=== PATIENT | male | born 1985 | race Caucasian/White ===

== ENCOUNTER 2024-12-21 01:10 | Emergency (ER) | payer OTHER, SELFPAY ==
[2024-12-21 01:29] VITALS: BP 148/96; BMI 25.1
[2024-12-21 02:00] VITALS: BP 145/101
--- NOTE | 2024-12-21 02:18 | ED.GENMED ---
History of Present Illness
General
Chief Complaint: Change in Mental Status
Source: patient and other (Transfer note from present)
Time Seen by Provider: 12/21/24 01:51
History of Present Illness
History of Present Illness:
39-year-old male brought to the emergency room from [facility] where he was noted to have a period of confusion. No witnessed seizure activity though the patient does have a history of seizures. He is prescribed Vimpat and
Briviact. Patient has been incarcerated for the past 24 hours or so. He endorses using cocaine, meth and 'Dab'. Staff were concerned the patient may have had a seizure. He does not believe he had a seizure. Patient denies any chest pain,
shortness of breath, abdominal pain. Patient was initially declined IV access and blood draw by nursing.
Past History
Past History
ED Past Medical History: Seizures
ED Past Surgical History: None
Social History
Tobacco: Smoker
Alcohol: None
Drug: None
Personal: Single
Living: with family
Employment: Employed
Phy Exam
Physical Exam
Physical Exam:
General: Awake, Alert, Oriented X3. Answers questions appropriately though does seem a bit unfocused.
Vitals: Mildly tachycardic
Head: Atraumatic
Eyes: Pupils equal, EOMI
Throat: Airway intact, no exudates
Neck: Trachea midline
Lungs: Clear and equal b/l
Heart: Regular rate, no murmurs
Abd: Soft, Nontender, No pulsatile mass
Neuro: Nonfocal
Skin: Warm, dry, no rash
Extremities: pulses equal b/l, no edema
Course
Orders/Labs/Results
Orders:
Orders
12/21/24 02:12
0.9% Sodium Chloride 1000 ml [Nss] 1,000 ml IV BOLUS
Lorazepam [Ativan] 1 mg IV NOW STA
12/21/24 02:55
Complete Blood Count/With Diff Urgent
Comprehensive Metabolic Panel Urgent
Abnormal Lab Results
12/21/24
02:55
WBC 13.0 H 10^3/uL
(4.8-10.8)
Abs Immat Gran (auto) 0.1 H 10^3/uL
(0-0.05)
Absolute Neuts (auto) 11.3 H 10^3/uL
(1.4-6.5)
Absolute Lymphs (auto) 0.9 L 10^3/uL
(1.2-3.4)
Absolute Monos (auto) 0.8 H 10^3/uL
(0.1-0.6)
Neutrophils % 86.8 H %
(42.2-75.2)
Lymphocytes % 6.5 L %
(20.5-51.1)
Chloride 110 H mmol/L
(98-107)
Glucose 101 H mg/dl
(70-99)
ALT 57 H U/L
(0-50)
12/21/24 02:55
12/21/24 02:55
Vital Signs
Initial and Last Documented VS:
Initial Vital Signs
Temp Pulse Resp BP Pulse Ox
98.9 F 116 18 148/96 95
12/21/24 01:29 12/21/24 01:29 12/21/24 01:29 12/21/24 01:29 12/21/24 01:29
Last Documented Vital Signs
Temp Pulse Resp BP Pulse Ox
98.9 F 112 20 135/87 96
12/21/24 01:29 12/21/24 04:45 12/21/24 04:45 12/21/24 04:00 12/21/24 04:45
MDM/Problems Addressed
Differential Diagnosis Includes:
Seizure with postictal state, withdrawal syndrome, psychiatric disease, electrolyte abnormality
MDM/Problems Addressed:
Patient presents after being found with decreased responsiveness and confusion. On arrival here to the emergency room the patient answers questions appropriately and has a nonfocal neurologic exam. He does have a bit of a bizarre affect but cannot
say that he is confused or delirious in any way. Patient has a history of seizures for which he takes 2 antiepileptics. I think it is most likely patient had a seizure and was found in a postictal state. Workup here in the emergency room does not
reveal any unstable process. He will be discharged back to the nursing home.
Chronic conditions affecting care: Other (Seizure disorder)
*Pulse Oximetry
Patient hypoxic: no
*Lottery Manager Interpretation
Rate: tachycardiac
Rhythm: sinus and sinus tachycardia
*Critical Care Note
Total Time (30-74mins, 75-104mins- exclusive of procedures): Not Applicable
ED Attending Note
-
Portions of this chart may have been created with voice recognition software.� Occasional wrong word or��sound alike� substitutions may have occurred due to the inherent limitations of voice recognition software.
Discharge Plan
Departure
Patient Disposition: Skilled Nursing
Date of Disposition: 12/21/24
Time of Disposition: 04:23
Condition: Good
Discharge Problem:
Confusion, Seizure
Instructions: Seizures
Referrals:
[facility] [Family Provider] -
Activity Restrictions/Additional Instructions:
The emergency room today because staff at the present thought he seemed confused. Your neurologic exam is normal here. Labs are unremarkable. There is no evidence for an unstable process requiring you to be admitted to the hospital.
Interventions
Interventions:
*Risk Screen - Suicide Last Done: 12/21/24 01:29
*General Assessment Last Done: 12/21/24 01:29
*Neglect/Abuse Screening Last Done: 12/21/24 01:29
*ED- Fall Risk Assessment Last Done: 12/21/24 01:29
*ED COVID-19 Vaccine History Last Done: 12/21/24 01:29
*Nursing Disposition Last Done: 12/21/24 04:55
ED- Pulmonary Assessment Last Done: 12/21/24 01:35
ED-Psychological Assessment Last Done: 12/21/24 04:55
ED- Neurological Assessment Last Done: 12/21/24 01:35
ED- Cardiac Assessment Last Done: 12/21/24 01:35
ED Swallowing Screen Last Done: 12/21/24 04:40
Discharge Date and Time
Discharge Date/Time: 12/21/24 04:50
Print Language: DIVEHI
[2024-12-21 03:00] VITALS: BP 129/72
[2024-12-21] MEDS: NSS 1000 IV (03:06)
[2024-12-21 03:08] LABS: Hematocrit 41.4 % (39.0-52.0); Hemoglobin 14.2 g/dL (13.0-18.0); Mean Corp Hgb Conc. 34.3 g/dL (33.0-37.0); Mean Corpuscular Volume 84.5 fL (80.0-94.0)
[2024-12-21 03:25] LABS: ALT (SGPT) 57 U/L (0-50); AST (SGOT) 44 U/L (17-59); Albumin 4.5 g/dl (3.5-5.0); Alkaline Phosphatase 120 U/L (38-126); Blood Urea Nitrogen 14 mg/dl (9-20); Calcium 8.8 mg/dl (8.4-10.2); Carbon Dioxide 23 mmol/L (22-30); Chloride 110 mmol/L (98-107); Estimated Creatinine Clearance > 125 ml/min; Glucose 101 mg/dl (70-99); Potassium 4.2 mmol/L (3.5-5.1); Sodium 140 mmol/L (135-145); Total Protein 7.1 g/dl (6.3-8.2); eGFR > 60.00
[2024-12-21 03:55] LABS: % Basophils 0.2 % (0-2); % Eosinophils 0.3 % (0-6); % Immature Granulocytes 0.4 % (0-0.5); % Lymphocytes 6.5 % (20.5-51.1); % Monocytes 5.8 % (1.7-9.3); % Neutrophils 86.8 % (42.2-75.2); Absolute Immature Granulocytes 0.1 10^3/uL (0-0.05); Absolute Lymphocytes 0.9 10^3/uL (1.2-3.4); Absolute Monocytes 0.8 10^3/uL (0.1-0.6); Absolute Neutrophils 11.3 10^3/uL (1.4-6.5); Mean Platelet Volume 10.3 fL (7.4-10.4); Nucleated Red Blood Cells % 0 % (-); Platelet Count 187 10^3/uL (130-400)
[2024-12-21 04:00] VITALS: BP 135/87
== END 2024-12-21 04:50 ==
LOC: EMR 01:10
PROVIDERS: EMERGENCY PHYSICIAN Emergency Medicine
DX: R41.0 Disorientation, unspecified (principal); R56.9 Unspecified convulsions; F17.200 Nicotine dependence, unspecified, uncomplicated
CPT/HCPCS: 99283; 96374; 80053; 85025